=== PATIENT | male | born 1995 | race Caucasian/White ===

== ENCOUNTER → 2020-06-22 | Outpatient (CLI) | payer OTHER ==
[~2020-06-22] MED LIST: GABA-845 PO; PERC5TAB12 PO
[2020-06-29 05:07] LABS: NICOTINE 4.1 ng/mL (.)
== END ==
LOC: M LAB 09:38
PROVIDERS: ATTEND Orthopaedic Surgery
DX: M51.16 Intervertebral disc disorders with radiculopathy, lumbar region (principal)

== ENCOUNTER 2020-06-27 05:50 | Inpatient (IN) | payer OTHER ==
[~2020-06-27] VITALS: Ht 175.3 cm; Wt 67.9 kg
[~2020-06-27 05:50] MED LIST changes: -PERC5TAB12 PO
[2020-06-27] MEDS ORDERED: PERCOCET 5MG/325MG TAB PO ONE (06:00)
[2020-06-27] MEDS ORDERED: GABAPENTIN 300 MG CAP PO ONE (06:00)
[2020-06-27] MEDS ORDERED: LR 1,000 ML IV ONE (06:00)
[2020-06-27] MEDS ORDERED: CLINDAMYCIN 900 MG/50 ML PREMIX BAG As Ordered ONE ×2 (06:33→12:13)
[2020-06-27] MEDS ORDERED: GABAPENTIN 300 MG CAP As Ordered ONE (06:33)
[2020-06-27] MEDS ORDERED: PERCOCET 5MG/325MG TAB As Ordered ONE (06:33)
[2020-06-27] MEDS: CLINDAMYCIN 900 MG in IV 1 EA IV ONE ×2 (06:53→07:50)
[2020-06-27] MEDS ORDERED: THROMBIN SOLN 20,000 UNITS KIT As Ordered ONE (07:19)
[2020-06-27] MEDS ORDERED: TRANEXAMIC ACID 100 MG/ML 10ML VIAL As Ordered ONE (07:19)
[2020-06-27] MEDS ORDERED: VANCOMYCIN 500MG/10ML VIAL As Ordered ONE (07:19)
[2020-06-27] MEDS ORDERED: BUPIVACAINE HCL 0.5% 10ML VIAL As Ordered ONE (07:19)
[2020-06-27] MEDS ORDERED: BUPIVACAINE/EPIN 0.25% 30 ML VIAL As Ordered ONE (07:19)
[2020-06-27] MEDS ORDERED: LIDOCAINE 2% 100MG/5ML SDV (FOR ANES.) As Ordered ONE (07:20)
[2020-06-27] MEDS ORDERED: METOCLOPRAMIDE INJ 10MG/2ML VIAL (J2765 PER 1) As Ordered ONE (07:20)
[2020-06-27] MEDS ORDERED: propofoL 200 MG/20 ML VIAL As Ordered ONE ×3 (07:20→12:16)
[2020-06-27] MEDS ORDERED: EPINEPHrine INJ 1 MG/ML 1ML AMP As Ordered ONE (07:20)
[2020-06-27] MEDS ORDERED: ONDANSETRON 4MG/2ML VIAL As Ordered ONE (07:20)
[2020-06-27] MEDS ORDERED: ROCURONIUM BROMIDE 50 MG/5 ML VIAL As Ordered ONE ×2 (07:20→10:39)
[2020-06-27] MEDS ORDERED: propofoL 500 MG/50 ML VIAL As Ordered ONE (07:20)
[2020-06-27] MEDS ORDERED: BACITRACIN PWD 50,000 UNITS VIAL As Ordered ONE (07:20)
[2020-06-27] MEDS ORDERED: BUPIVACAINE LIPOSOME/PF 1.3% 20ML VIAL (13.3MG/ML)(EXPAREL)(C9290 PER1MG) As Ordered ONE (07:20)
[2020-06-27] MEDS ORDERED: MIDAZOLAM INJ 2MG/2ML VIAL (J2250 PER 1MG) As Ordered ONE (07:21)
[2020-06-27] MEDS ORDERED: fentaNYL 100 MCG/2 ML INJECTION (J3010) As Ordered ONE (07:21)
[2020-06-27] MEDS ORDERED: ePHEDrine SULFATE 25 MG/5 ML(5MG/ML) SYRINGE As Ordered ONE (08:41)
[2020-06-27] MEDS ORDERED: HYDROmorphone HCL 2 MG/ML 1ML VIAL (J1170) As Ordered ONE (10:39)
[2020-06-27] MEDS ORDERED: LR 1,000 ML IV SCH (13:30)
[2020-06-27] MEDS ORDERED: ONDANSETRON 4MG/2ML VIAL IV PRN (13:30)
[2020-06-27] MEDS ORDERED: fentaNYL 100 MCG/2 ML INJECTION (J3010) IV PRN (13:30)
[2020-06-27] MEDS ORDERED: oxyCODONE 5MG TAB PO PRN (13:30)
[2020-06-27] MEDS ORDERED: HYDROMORPHONE HCL 0.5 MG/ 0.5 ML SYRINGE (J1170 PER 1) IV PRN ×3 (14:00→14:15)
[2020-06-27] MEDS ORDERED: CLINDAMYCIN 600 MG in IV 1 EA IV SCH (14:00)
[2020-06-27] MEDS ORDERED: CYCLOBENZAPRINE 10MG TABLET PO PRN (14:15)
[2020-06-27] MEDS ORDERED: PERCOCET 5MG/325MG TAB PO PRN (14:15)
[2020-06-27] MEDS ORDERED: PROMETHAZINE INJ 25 MG/ML VIAL (J2550) IV PRN (14:15)
[2020-06-27 14:30] VITALS: BP 136/79
[2020-06-27 15:00] VITALS: BP 130/80
[2020-06-27 16:35] VITALS: BP 158/80
[2020-06-27] MEDS: CLINDAMYCIN 600 MG in IV 1 EA IV SCH ×2 (17:07→23:35)
[2020-06-27] MEDS: PERCOCET 5MG/325MG TAB PO PRN ×2 (17:18→21:27)
[2020-06-27 17:30] VITALS: BP 143/82
[2020-06-27 22:00] VITALS: BP 139/81
[2020-06-28 02:00] VITALS: BP 117/55
[2020-06-28] MEDS: PERCOCET 5MG/325MG TAB PO PRN ×2 (05:03→08:54)
[2020-06-28 06:00] VITALS: BP 113/55
[2020-06-28] MEDS ORDERED: PERC5TAB12 PO (06:26)
[2020-06-28] MEDS ORDERED: METAMUCIL (PSYLLIUM) PACKET PO SCH (09:00)
[2020-06-29] MEDS ORDERED: INFLUENZA QUADRIVALENT PF VACCINE 0.5ML SYRINGE IM ONE (09:00)
--- NOTE | 2020-07-03 14:56 | HPE ---
DATE OF ADMISSION: 06/27/2020 ATTENDING PHYSICIAN: Dr. Willian Oconnell CHIEF COMPLAINT: Low back pain with right lower extremity radiculopathy. HISTORY: Patient is a 25-year-old male with a lower extremity pain and right- sided disc bulge above his transitional motion segment. He has failed to improve with conservative measures. He continues to have symptoms with activities of daily living. He has consented for an elective transforaminal lumbar interbody fusion (TLIF) fusion after a right unilateral laminectomy to decompress the nerve roots at L4-S1 above his transitional anatomy. CURRENT MEDICATIONS: None. MEDICATIONS ALLERGIES: PENICILLIN. CHRONIC MEDICAL CONDITIONS: Low back pain with right-sided radiculopathy. SURGERIES: None. SOCIAL HISTORY: Patient denies tobacco use. He drinks only socially. 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 REVIEW OF SYSTEMS: Patient denies fevers, chills, nausea, vomiting, or diarrhea. Denies chest pain, shortness of breath, lightheadedness, dizziness, or headaches. He denies any abdominal pain. He does have intermittent incomplete emptying with urinating and is currently being followed for this by his primary director long term care. Patient does continue to have low back pain with right lower extremity radiculopathy. PHYSICAL EXAMINATION: GENERAL: Well-nourished, well-developed male in no apparent distress. He is alert, oriented, and cooperative. Mood and affect are appropriate. VITAL SIGNS: Height 69 inches, weight 153 pounds, temperature 96.8, heart rate 82, respirations 18, blood pressure 124/74. HEART: Regular rate and rhythm. LUNGS: Clear to auscultation bilaterally. Breathing is regular and nonlabored. ABDOMEN: Soft and nontender. Bowel sounds are present. MUSCULOSKELETAL: Patient is walking with a nonantalgic gait. There does not appear to be any muscle wasting, atrophy, fasciculations. There is normal muscle tone. There is some pain with palpation across the lumbar spine. He does appreciate light touch. He did not have a motor deficit. Deep tendon reflexes are absent at the right ankle, 1 at the left ankle, 1 at both knees. He is able to toe walk and able to heel walk without focal motor deficit. Provocative straight leg raise in the seated position. Straight leg raise on the left seems to provoke right buttock discomfort. Straight leg raise on the right side but unable to fully extend the right leg. He has discomfort in the seated position at about 45 degrees of extension. No peripheral edema, warmth. Well-perfused lower extremities. Clonus is negative. Alvares's is negative. IMAGING: X-ray, flexion and extension views, show a decreased disc height at L5-S1. S1 is clearly transitional. L5 is retrolisthesed 2-3 mm on S1 on the extension view and less than 2 mm on the flexion view. There is somewhat decreased disc height at L2 level with anterior endplate changes. L1 level, some anterior endplate changes. MRI does show a broad-based but largely right paracentral disc herniation at the lumbosacral junction to the right side, which impresses on the transversing S1 nerve root but also produces some stenosis on the lateral recess on the left side and mild central stenosis. IMPRESSION: Low back pain with right lower extremity radiculopathy. PLAN: Patient consented for an elective TLIF fusion after a right unilateral laminectomy to decompress the nerve roots at L4-S1 above his transitional anatomy with Dr. Oconnell for his continued symptoms. Patient will be nothing by mouth after midnight the night prior to surgery. Patient will bring his back brace with him to [facility] tomorrow for his surgery. LA
--- NOTE | 2020-07-03 16:04 | REP ---
PARTIAL LUMBAR SPINE SERIES: 2-VIEWS HISTORY: Transitional anatomy. Right L4-5 disc. FLUOROSCOPY TIME: 2 minutes and 2 seconds reported. FINDINGS: A sequence of [id number] fluoroscopically obtained spot radiographs of the lumbosacral junction document posterior element and interbody fusion hardware in place. No available correlative imaging. [facility]
--- NOTE | 2020-07-09 07:30 | RO ---
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 PROCEDURE: Right unilateral laminectomy of L4 for decompression of the thecal sac exiting the traversing nerve root, right unilateral laminectomy S1 additional level, posterior interbody combined arthrodesis including end-plate preparation, posterior non-segmental instrumentation, bilateral pedicle screws, use of intravertebral biomechanical device at the L4/S1 level, harvest and placement of right iliac crest morselized autograft for spine surgery, harvest and placement of donor allograft morselized for spine surgery. SURGEON: Willian Oconnell MD INVENTORY SPECIALIST: MERE Wei ANESTHESIA: General. ESTIMATED BLOOD LOSS: Less than 100 ml, replaced with Crystalloid. COMPLICATIONS: None. COMPONENTS USED: Included the DePuy Viper System, 7.5 mm screws, 40 mm length. An 11 x 30 mm CASCADIA interbody cage, 15 cc on DBM putty, 15 cc crush cancellous bone graft. INDICATIONS: Intractable discomfort in the back and radiating down the right lower extremity. Transitional lumbosacral anatomy. The patient elected for operative intervention. Consent reviewed in detail with the patient including a andrew discussion with pathology involved. Procedure proposed, alternatives including doing nothing, risks, including but not limited to pain, failure, need for more surgery, adjacent level changes, infection, failure and other issues, the patient agrees to proceed. OPERTIVE COURSE: Identified in the holding area, site and side verified, brought to the operating room. Once anesthesia was administered, he was then positioned on the Dariel frame for exposure of the lumbar spine. Once I and adult nurse practitioner were comfortable with the patient's positioning, he was then sterilely prepped and draped in the usual fashion. We accomplished a time-out. We utilized biplanar fluoroscopy throughout the procedure. Mr. Neumann was present and participated in the capacity of engineer first assistant throughout this procedure. From the beginning of the procedure, we anesthetized the incision line based on fluoroscopic visualization. I made a slightly right paramedium sagittal incision approximately 5 cm long over the 4 S1 level, developed down through subcuticular tissues. The posterior lumbar fascia was encountered. I then made transverse incisions along the fascial plane over the pedicle of 4 and S1. Next, I then utilized the dilator followed by placement of a Jamshidi needle, which was visualized in AP and lateral fluoroscopy. We cannulated first the L4 pedicle. We advanced the Jamshidi needle into the vertebral body. We verified its position with AP lateral fluoroscopy and then I passed the wire through the Jamshidi needle, the guidewire. Next, once this was in place in the vertebral body, I then removed the Jamshidi needle and we tapped with a size 6.5 tapping screw. This was accomplished both the L4 and S1 under fluoroscopic visualization. Next, once this was accomplished, attention was turned to placement of the percutaneous screws in the contralateral side. These were placed through separate skin incisions using the complete Viper system. This means that once the skin incision was made, I advanced the Viper cannulated pedicle screw and otr flatbed driver construct to the lateral aspect of the pedicle under AP fluoroscopy and then advanced the guidewire into the pedicle, into the vertebral body by tapping and advancing 2 mm at a time under fluoroscopic visualization in the AP and lateral plane. Then once the guidewire verified placement in the vertebral body, advance the self taping 7.5, 40 mm screws into the vertebral body and verified them fluoroscopically. Next, once this was accomplished, we are able to decompress from the right side. This was accomplished using loupe magnification and a headlamp. I reflected posterior lumbar fascia off the spinous processes of 4 and S1 and exposed the L4/S1 segment and lamina. We did obtain a cross table lateral and verifying this. I then utilized the high-speed bur to implement the unilateral laminectomy of L4 extending superiorly to the bare area 4 laterally through the inferior facet of 4, inferiorly through the bare area of S1 and then removed ligamentum flavum using curettes and Kerrisons. This exposed the thecal sac. I directly visualized the traversing nerve root and palpated the neural foramina with the exiting nerve root. The central and paracentral disk bone was appreciated. The annulus was opened with an 11 blade while Mr. Neumann retracted with level retractors, I removed a 12 cm square of annulus and then removed disk material. Disk material was removed with pituitaries, as well as reamers. I utilized ring curettes and rasp to further prepare the end-plate perfusion. Next, once this was accomplished, I placed the trial 11 mm interbody biomechanical device in place and verified this on AP and lateral fluoroscopy. Next, this seemed to fit appropriately and was removed. Next, we obtained iliac crest from the right posterior superior iliac spine. This was accomplished through a separate fascial incision. The morselized crest was removed by making an incision over the posterior superior iliac spine, removing the cortical bone with Leksells and retaining it, as well as removing morselized bone using Ford curettes. In addition to this bone, we had collected bur millings during the laminectomy portion of the procedure as local autograft and this was utilized. Next, I irrigated the wound including placement of TXA and dry Gelfoam followed by closure of the fascial wound at the iliac crest. Next, once this was accomplished, the morcelllized bone was tamped into the 11 mm x 30 CASCADIA cage along with the demineralized bone matrix putty ____ its surface. Next, once this was accomplished, I placed the distraction device across the left pedicle screws, which had been placed and distracted the interspace. Next, I visualized the annulotomy again. I irrigated the interbody space and removed a few pieces of viable disk material with pituitaries. Next, once this was accomplished, I obtained the remaining iliac crest and approximately 3 cc of that was placed into the interspace at L4/S1. Next, I then obtained the non-trial cage which was packed with graft and impacted into the interspace while Mr. Neumann retracted with level using the mallet. Placement of the graft was visualized in AP and lateral fluoroscopy. Next, once this was accomplished, the insertion tool was removed. The cage was visualized to not be impinging on any neural structure and final fluoroscopic images were taken of the cage Next, once this was accomplished, I then placed the guidewire, blunt end down, into the vertebral body at 4 and S1 on the patient right side and then over the guidewire placed the 7.5 40 mm screws on the right at L4 and S1. Next, once the screws were set and visualized fluoroscopically and we had removed guidewires, we then used the connecting demar instillation tool to insert connectin rods, placed end caps compressed across the end caps. Of note, prior to placement of the screws on the right side, we did retract over the transverse processes, decorticated the transverse processes and placed the remaining iliac crest bone graft, local graft and some donor bone graft and DBX over the transverse processes on the right. Next, once the endo caps were engaged, I used the torque counter-torque device to lock the end caps after compression. Next, the contralateral percutaneous screws, I placed the connecting demar, locked the inferior tulip with the torque counter torque and then compressed across the left pedicle screws and locked the superior screw tulip with torque counter torque. Next, once this was accomplished, we exposed the facet complex on the patient's left side and decorticated the facet complex in place, the remaining donor and local bone over the facet complex on the patient's left side. Next, we had irrigated with saline solution, as well as TXA. Next, once all retractors were removed, we closed posterior fascia with interrupted stitch, the dermis with interrupted stitch. Prineo dressing was placed on the skin wounds. The patient was able to be log rolled to hospital bed, extubated and moved to the recovery room in good condition. For further details, please refer to medical record. I notified the patients next kin while he was in the recovery room. He had wanted his father notified. [place]
--- NOTE | 2020-07-10 12:54 | DS ---
DATE OF ADMISSION: 06/27/2020 DATE OF DISCHARGE: 06/28/2020 ATTENDING PHYSICIAN: Willian Oconnell MD ADMITTING DIAGNOSIS: Low back pain with right lower extremity radiculopathy. DISCHARGE DIAGNOSIS: Low back pain with right lower extremity radiculopathy status post elective transforaminal lumbar interbody fusion (TLIF) after a right unilateral laminectomy to decompress the nerve roots at L4-S1 above his transitional anatomy. HISTORY: Patient is a 25-year-old male with lower extremity pain and right- sided disc bulge above his transitional motion segment. He failed to improve with conservative measures. He continued to have symptoms with weightbearing activities and activities of daily living. He consented for an elective transforaminal lumbar interbody fusion after right unilateral laminectomy to decompress the nerve roots at L4-S1 above his transitional anatomy. OPERATION PERFORMED: Right unilateral laminectomy of L4 for decompression of the thecal sac exiting the transversing nerve root, right unilateral laminectomy S1 additional level, posterior interbody combined arthrodesis including endplate preparation, posterior non-segmental instrumentation, bilateral pedicle screws, use of intervertebral biomechanical device at the L4-S1 level, harvest and placement of right iliac crest morselized auto graft for spine surgery, harvest and placement of donor allograft morselized for spine surgery. HOSPITAL COURSE: The patient underwent a transforaminal lumbar interbody fusion after right unilateral laminectomy to decompress the nerve roots at L4-S1 above his transitional anatomy. Surgery was done under general anesthesia and was without complication. Hospital course was uneventful. Patient was discharged on oral pain medications and will presume his preoperative medications and diet. He will use his thromboembolic deterrent stockings as directed to prevent deep venous thrombosis. Patient will followup in our office in 7-10 days for reevaluation. He will use his back brace as directed. Patient will call our office sooner if there is any increase in pain, redness, drainage, radicular symptoms, problems with bowel or bladder control issues, fever greater than 101 degrees, or any other concerns. Please see medical records for additional details. MTDD
== END 2020-06-28 09:20 | disposition home or self-care (01) | DRG 455 ==
LOC: M OR 05:50 → EDSTATUS 10:00 → M MSPAV 14:42 → M MS5PR 16:28
PROVIDERS: ADMIT Orthopaedic Surgery; ATTEND Orthopaedic Surgery
PROC: 0SG30AJ Fusion of Lumbosacral Joint with Interbody Fusion Device, Posterior Approach, Anterior Column, Open Approach (ICD-10-PCS; 2020-06-27)
PROC: 00NY0ZZ Release Lumbar Spinal Cord, Open Approach (ICD-10-PCS; 2020-06-27)
PROC: 01NB0ZZ Release Lumbar Nerve, Open Approach (ICD-10-PCS; 2020-06-27)
PROC: 0SG3071 Fusion of Lumbosacral Joint with Autologous Tissue Substitute, Posterior Approach, Posterior Column, Open Approach (ICD-10-PCS; principal; 2020-06-27 07:30)
DX: M47.26 Other spondylosis with radiculopathy, lumbar region (principal); Z88.0 Allergy status to penicillin